=== PATIENT | male | born 1945 | race Caucasian/White ===

== ENCOUNTER 2024-08-01 10:48 | Outpatient (AMB) | payer MEDICARE, SELFPAY ==
[2024-08-01 11:00] VITALS: BP 162/84; PULSE 78; RESP 18; TEMP 36.1; O2SAT 97; BMI 34.5
--- NOTE | 2024-08-01 11:00 | PD.GSCLVISIT ---
Vital Signs - [facility] 08/01/24 11:00 Height 1.75 m Height Method Stated Weight 106.141 kg Weight Measurement Method Standing Scale BMI 34.5 BP 162/84 H Blood Pressure Source Automatic Cuff Blood Pressure Location Right Upper Arm Position Sitting Respiration 18 Pulse 78 Pulse Source Monitor Temp 96.9 F Temp Source Temporal Artery Scan Pulse Oximetry (%) 97 Oxygen Delivery Method Room Air Med/Allergies Allergies & Medications Allergies morphine Allergy (Intermediate, Verified 08/01/24 11:01) RASH Medication Reconciliation atorvastatin 10 mg tablet (Lipitor) 10 mg PO DAILY ##0 01/15/10 [History Confirmed 08/01/24] venlafaxine 75 mg capsule,extended release 24 hr 75 mg PO BID Depression ##0 07/22/14 [History Confirmed 08/01/24] baclofen 10 mg tablet 10 mg PO BID 04/11/21 [History Confirmed 08/01/24] allopurinol 100 mg tablet 100 mg PO DAILY 07/17/22 [History Confirmed 08/01/24] aspirin 81 mg chewable tablet 81 mg PO QDAY 07/17/22 [History Confirmed 08/01/24] cholecalciferol (vitamin D3) 125 mcg (5,000 unit) tablet (Vitamin D3) 125 mcg PO 2 X WEEKLY 07/17/22 [History Confirmed 08/01/24] gabapentin 300 mg capsule 300 mg PO TID 07/17/22 [History Confirmed 08/01/24] ibuprofen 800 mg tablet 800 mg PO TID 07/17/22 [History Confirmed 08/01/24] amlodipine 5 mg-benazepril 10 mg capsule 1 cap PO BID 04/28/23 [History Confirmed 08/01/24] levothyroxine 125 mcg tablet 125 mcg PO QDAY 04/28/23 [History Confirmed 08/01/24] primidone 250 mg tablet 250 mg PO BID 04/28/23 [History Confirmed 08/01/24] aspirin 81 mg chewable tablet 81 mg PO QDAY 06/09/23 [History Confirmed 08/01/24] hydrocodone 10 mg-acetaminophen 325 mg tablet 1 tab PO 4XD PRN Pain 06/09/23 [History Confirmed 08/01/24] temazepam 30 mg capsule 30 mg PO DAILY 06/09/23 [History Confirmed 08/01/24] hydrocortisone 1 % topical cream with perineal applicator 1 applic [place] QDAY #28.4 grams 02/03/24 [Rx Confirmed 08/01/24] MA Intake Visit Data Collection New Patient or Established: Established Patient (seen at [facility] within 3 years) Seen by Clinical Staff ONLY (RN/DEB): No Reason for Visit:: ANAL LEAKAGE X 2 MONTHS Pain Present Currently: No PCP or OBGYN visit in last 3 months: Yes Smoking Status Smoking Status: Never smoker Immunization / Flu Flu Vaccine in the Last 12 Months: Yes Flu Vaccine Exclusion Criteria: Already Received Past Medical History Past Medical History NEUROLOGIC: Negative Neurological Disorders, Seizures or Migraine CARDIAC: Positive Cardiac Disorders, Hypercholesterolemia and Hypertension; Negative Congestive Heart Failure, Edema or Varicose Veins RESPIRATORY: Positive Chronic Obstructive Pulmonary Disease (COPD) and Bronchitis GASTROINTESTINAL: Positive Gastrointestinal Disorders, Gall Bladder Disease, Hemorrhoids and Obesity; Negative Hepatitis GENITOURINARY: Positive Genitourinary Disorders, Kidney Stones and Benign Prostatic Hyperplasia; Negative Renal Disease MUSCULOSKELETAL: Positive Arthritis and Carpal Tunnel Syndrome (bilateral) ENT: Positive Cataracts (right) ENDOCRINE: Positive Endocrine Disorders and Hypothyroidism; Negative Diabetes Mellitus Type 1 or Diabetes Mellitus Type 2 HEMATOLOGIC: Negative Blood Disorders PSYCHO/SOCIAL: Positive Depression and Anxiety OTHER HISTORY: Positive Hospitalization (surgeries), Falls, Chicken Pox and Measles; Negative Autoimmune Disease, Shingles, Blood Transfusions, Blood Transfusion Reaction, Anesthesia Reactions, MRSA, Mumps or Cancer Family History FAMILY HISTORY: Positive Family Respiratory Disorders, Family Cardiac Disorders and Family Surgery; Negative Family Psychiatric Problems, Family Gastrointestinal Problems, Family Cancer or Family Anesthesia Reaction Surgical History SURGICAL: Positive Cardiac Surgery, Coronary Stent, Angiogram, Ear Surgery, Abdominal Surgery and Transurethral Resection; Negative Pacemaker Social History SMOKING STATUS: Smoking status: Never smoker ALCOHOL: Alcohol Intake: Former HOUSING: Housing: House HPI HPI Narrative 77M with history of perianal ulcer s/p biopsy x2 negative for malignancy, here for follow up. Pt reports he is having his baseline loose BMs but as of the last few weeks has noticed that sometimes he has to wipe even when he does not have a BM. He has also noticed a whitish discharge sometimes upon wiping. He denies any pain, bleeding or itching and is not using any remedies. He denies any fever or sick contacts ROS Review of Systems Systems Reviewed: All systems reviewed, normal except as documented Objective/Exam General General Appearance: alert, cooperative and well groomed Resp Respiratory exam: Absent respiratory distress Rectal Rectal exam: Present other (previous anterior perianal ulcer well-healed; there are no hemorrhoids, no signs of external fistula) Assessment & Plan Diagnosis / Problem List (1) Perianal ulcer: Status: Acute Assessment & Plan: 77M with history of perianal ulcer s/p biopsy x2 negative for malignancy, here for follow up to discuss white perianal discharge. On exam I did not find any abnormalities; I encouraged pt to initiate fiber in order to minimize loose BMs and incontinence Advanced Care Planning Advance care planning discussed with:: other Office Procedures GNS Level of Care Nursing/Assessment Patient Status: Established Patient Nursing Assessment/Reassesment: Medication Reconciliation, Update PMH in EMR and Vital Signs Coordination of Care: Complex Care and Chronic Disease 1-5, Education Complex Pt/Fam, 1 Ins Authorization and Staff clarify orders Established Patient Charge Established Patient Point Assignment: 100 Established Patient Point Charge: EP Level 3 (80-115) Patient Portal Questionaires Social History Living Situation History Housing: House Tobacco History Smoking Status: Never smoker Alcohol History Alcohol Intake: Former Review of Systems Report any current symptoms Only answer those that you have currently: Past Medical History Past Medical History Have you ever been diagnosed with any of the following: Neurological Problems Seizures: No Migraine: No Cardiology Problems Hypercholesterolemia: Yes Congestive Heart Failure: No Edema: No Hypertension: Yes Varicose Veins: No Respiratory Problems Chronic Obstructive Pulmonary Disease (COPD): Yes Bronchitis: Yes Stomache/Intestinal Problems Hepatitis: No Gall Bladder Disease: Yes Hemorrhoids: Yes Obesity: Yes Genital/Urinary Problems Renal Disease: No Kidney Stones: Yes Benign Prostatic Hyperplasia: Yes Musculoskeletal Problems Arthritis: Yes Carpal Tunnel Syndrome: Yes (bilateral) Head,Eye,Nose,Throat Problems Cataracts: Yes (right) Endocrine Problems Diabetes Mellitus Type 1: No Diabetes Mellitus Type 2: No Hypothyroidism: Yes Psychologic Problems Depression: Yes Anxiety: Yes Other Problems Hospitalization: Yes (surgeries) Autoimmune Disease: No Shingles: No Falls: Yes Blood Transfusions: No Blood Transfusion Reaction: No Anesthesia Reactions: No MRSA: No Chicken Pox: Yes Measles: Yes Mumps: No Cancer: No Surgical History Pacemaker: No
== END 2024-08-01 11:58 | disposition home or self-care (01) ==
LOC: HODSRG 10:48
PROVIDERS: PCP Family Medicine; Referring Provider Family Medicine; Supervising Provider Surgery; Visit Provider Surgery
DX: K62.89 Other specified diseases of anus and rectum (principal)
CPT/HCPCS: 99213; G0463

== ENCOUNTER → 2024-08-16 | Outpatient (CLI) | payer MEDICARE, SELFPAY ==
[2024-08-16 08:18] LABS: Collection Type, Urine Clean Catch
[2024-08-16 09:00] LABS: Basophils % (Auto) 0 % (0-2.5); Eosinophils # (Auto) 0.1 Thou/mm3 (0.0-0.5); Eosinophils % (Auto) 1 % (0-10); Hematocrit 41.2 % (41.0-53.0); Hemoglobin 13.7 g/dL (13.5-16.0); Immature Granulocytes % (Auto) 0 % (0-0); Immature Granulocytes Auto 0.02 Thou/mm3 (0.00-0.00); Lymphocytes % (Auto) 22 % (10-50); Mean Corpuscular HGB Conc 33.3 g/dl (31.0-37.0); Mean Corpuscular Hemoglobin 31.1 pg (25.0-35.0); Mean Corpuscular Volume 93 fL (80-100); Monocytes # (Auto) 0.8 Thou/mm3 (0.0-0.8); Monocytes % (Auto) 8 % (0-12); Neutrophils # (Auto) 6.3 Thou/mm3 (1.8-7.7); Neutrophils % (Auto) 69 % (37-80); Nucleated Red Blood Cell % 0 /100 WBC (0); Platelet Count 214 Thou/mm3 (140-440); RDW Standard Deviation 44.2 fL (35.1-43.9); Red Blood Count 4.41 Miln/mm3 (4.50-5.90); White Blood Count 9.2 Thou/mm3 (3.8-10.6)
[2024-08-16 09:07] LABS: Bilirubin,Urine Negative (Negative); Blood,Urine Negative (Negative); Clarity,Urine Clear (Clear/Hazy); Color,Urine Lt-Yellow (Lt Yel-Yel); Glucose, Urine Negative (Negative); Ketones,Urine Negative (Negative); Leukocyte Esterase,Urine Negative (Negative); Nitrite,Urine Negative (Negative); Protein,Urine 1+ (Neg - Trace); RBC,Urine 2 /hpf (0-3); Specific Gravity,Urine 1.027 (1.001-1.035); Squamous Epithelial Cell,Urine < 1 /hpf (0-5); Urobilinogen,Urine Negative mg/dL (0.0-1.0); WBC,Urine 1 /hpf (0-5)
[2024-08-16 09:12] LABS: Glucose Estimated Average 120 mg/dL (80-131); Hemoglobin A1C 5.8 % Hgb (4.8-6.0)
[2024-08-16 09:47] LABS: Alanine Aminotransferase 21 U/L (10-49); Albumin, Serum 4.7 gm/dL (3.4-4.8); Albumin/Globulin Ratio 2.1 (1.2-2.2); Alkaline Phosphatase 83 U/L (46-116); Anion Gap 8 (7-16); Aspartate Amino Transferase 15 U/L (0-34); BUN/Creatinine Ratio 20 Ratio (12-20); Bilirubin,Total 0.2 mg/dL (0.3-1.2); Blood Urea Nitrogen 18 mg/dL (9-23); Calcium 9.2 mg/dL (8.3-10.6); Calcium (Corrected) 9.2 mg/dL (8.5-10.1); Carbon Dioxide 30.7 mMol/L (20.0-31.0); Cardiac Risk Estimate 3.5 RATIO (4.0-6.7); Chloride 101 mMol/L (98-107); Cholesterol 117 mg/dL (132-200); Creatinine (Component) 0.9 mg/dL (0.6-1.3); Globulin 2.2 gm/dL (2.3-3.5); Glucose 111 mg/dL (74-106); HDL Cholesterol 33 mg/dL (40-60); LDL Cholesterol,Calculated 60 mg/dL (0-130); Osmolality,Calculated 282 (275-295); Potassium 4.6 mMol/L (3.4-5.1); Sodium 140 mMol/L (136-145); Total Protein 6.9 gm/dL (5.7-8.2); Triglycerides 122 mg/dL (30-150); eGFR > 60 See Note
[2024-08-16 10:02] LABS: Creatinine MALB Rnd Ur 151 mg/dL (30-125); Microalbumin Creat Ratio 56 mg/gCrea (<30); Microalbumin, Random Urine 85 mg/L (0-300)
== END | disposition home or self-care (01) ==
LOC: COPL 06:40
PROVIDERS: PCP Family Medicine; Referring Provider Family Medicine; Visit Provider Family Medicine
DX: Z00.00 Encounter for general adult medical examination without abnormal findings (principal); E11.40 Type 2 diabetes mellitus with diabetic neuropathy, unspecified; E78.2 Mixed hyperlipidemia; I10 Essential (primary) hypertension; E03.9 Hypothyroidism, unspecified
CPT/HCPCS: 36415; 80053; 80061; 81001; 82043; 82570; 83036; 84443; 85025

== ENCOUNTER 2024-09-14 18:40 | Emergency (ER) | payer MEDICARE, SELFPAY ==
[2024-09-14 18:43] VITALS: BP 183/92; PULSE 74; RESP 20; TEMP 36.9; O2SAT 95
[2024-09-14 18:44] VITALS: PULSE 77; RESP 20; O2SAT 98; BMI 34.9
--- NOTE | 2024-09-14 19:14 | PD.EDWEAK ---
ED Weakness RME/HPI General Chief complaint: Weakness Stated complaint: WEAKNESS Time Seen by Provider: 09/14/24 19:14 Arrival date/time: 09/14/24 18:40 RME / HPI RME / HPI Narrative: This section includes all my notes and documentations, including HPI, PE, and ED course. Paddy Valadez MD HPI: 78yo male with a history of HTN, HLD, multiple back surgeries BIBA from home presents to the ED for vague complaints. Patient states he went to see a supervisor stone today and was told his blood pressure was high, 180 systolically. He reports having a headache and my face feeling tight . He also notes having generalized abdominal pain. He denies any vomiting, fever, chills or any other associated symptoms. He took ibuprofen 800mg at 1600. PSH includes cholecystectomy and appendectomy. No other complaints reported. ROS: All negative except as documented in HPI. Physical Exam: General: Alert and oriented. No acute distress when remaining still. Eyes: Conjunctivae and lids clear. PERRL. EOMI. ENT: No nasal congestion. Neck: Supple. Heart: RRR. Lungs: No respiratory distress. Good air movement. No rhonchi, wheezing, rales. Abdomen: Soft. Diffusely tender. Legs: No clubbing, cyanosis, edema. Skin: Warm and dry. Neuro: Alert and oriented X 3. Cranial nerves II to XII grossly normal. No peripheral motor deficits. I reviewed all diagnostic test results. My interpretation of the EKG is sinus rhythm with no acute ST?T changes. My review of the head CT report is no acute findings. My review of the chest/abdomen/pelvis CT report is no acute findings. Blood tests and urine tests unremarkable. At this point, diagnoses include tension headache and hypertension. Treatment here included IV fluid and oral clonidine 0.3 mg and two Tylenol #3. Significant improvement noted. Recommended more outpatient care. Based on my best medical judgment, made decision no further evaluation or treatment indicated at this time. Patient understands and agrees to the discharge instructions customized and printed, see below. Discharge Instructions from Dr. Valadez printed for you: 1. After extensive evaluation, fortunately there is no life-threatening condition. Such as stroke or brain tumor or heart attack. 2. Tylenol with Codeine for your severe headaches as needed. 3. Clonidine 0.1 mg every morning and every night to help lower your BP. You will live longer with lower BP. 4. See a private doctor on 09/16/2024 for recheck and further care. 5. Seek immediate medical care with worsening or with any concerns. Paddy Valadez MD Related Data Home Medications ?Medication ?Instructions ?Recorded ?Confirmed atorvastatin 10 mg tablet (Lipitor) 10 mg PO DAILY ##0 01/15/10 08/01/24 venlafaxine 75 mg capsule,extended 75 mg PO BID Depression ##0 07/22/14 08/01/24 release 24 hr baclofen 10 mg tablet 10 mg PO BID 04/11/21 08/01/24 allopurinol 100 mg tablet 100 mg PO DAILY 07/17/22 08/01/24 aspirin 81 mg chewable tablet 81 mg PO QDAY 07/17/22 08/01/24 cholecalciferol (vitamin D3) 125 125 mcg PO 2 X WEEKLY 07/17/22 08/01/24 mcg (5,000 unit) tablet (Vitamin D3) gabapentin 300 mg capsule 300 mg PO TID 07/17/22 08/01/24 ibuprofen 800 mg tablet 800 mg PO TID 07/17/22 08/01/24 amlodipine 5 mg-benazepril 10 mg 1 cap PO BID 04/28/23 08/01/24 capsule levothyroxine 125 mcg tablet 125 mcg PO QDAY 04/28/23 08/01/24 primidone 250 mg tablet 250 mg PO BID 04/28/23 08/01/24 aspirin 81 mg chewable tablet 81 mg PO QDAY 06/09/23 08/01/24 hydrocodone 10 mg-acetaminophen 1 tab PO 4XD PRN Pain 06/09/23 08/01/24 325 mg tablet temazepam 30 mg capsule 30 mg PO DAILY 06/09/23 08/01/24 Previous Rx's ?Medication ?Instructions ?Recorded hydrocortisone 1 % topical cream 1 applic [place] QDAY #28.4 grams 02/03/24 with perineal applicator acetaminophen 300 mg-codeine 30 mg 2 tab PO TID PRN pain #20 tabs 09/14/24 tablet clonidine HCl 0.1 mg tablet 0.1 mg PO BID #60 tabs 09/14/24 Allergies Allergy/AdvReac Type Severity Reaction Status Date / Time morphine Allergy Intermediate RASH Verified 08/01/24 11:01 Review of Systems Review of Systems Systems Reviewed: All systems reviewed, normal except as documented ED Exam Narrative Physical exam: As noted in HPI. Course Quality Measures none Orders Category Date Time Status Bedside COVID-19 Antigen Test NOW Care 09/14/24 19:46 Active Bedside Influenza A&B Antigen Test NOW Care 09/14/24 19:46 Completed EKG (ED ONLY) *Do not use* NOW Care 09/14/24 19:47 Completed Saline [Insert IV] NOW Care 09/14/24 19:[address] chest abdomen pelvis wo Stat Exams 09/14/24 19:[address] head/brain wo con Stat Exams 09/14/24 19:47 Completed EKG (ED Only) Stat Exams 09/14/24 19:47 Draft CBC Stat Lab 09/14/24 20:14 Completed CMP [Comprehensive Metabolic Panel] Stat Lab 09/14/24 20:14 Completed Magnesium Stat Lab 09/14/24 20:14 Completed TSH [Thyroid Stimulating Hormone] Stat Lab 09/14/24 20:14 Completed Troponin I Stat Lab 09/14/24 20:14 Completed UA, C/S IF [Urinalysis, C/S if Indicated] Stat Lab 09/14/24 19:55 Completed ACETAMINOPHEN w/COD 300-30 [Tylenol w/Cod #3] Med 09/14/24 19:45 Discontinued 2 tab PO X1 ONE Sodium Chloride 0.9% 1000 ml [Ns] 1,000 ml Med 09/14/24 19:46 Discontinued IV 999 mls/hr cloNIDine HCL [Catapres] Med 09/14/24 19:45 Discontinued 0.3 mg PO X1 ONE Vital Signs Vital signs: Vital Signs Temperature 98.4 F 09/14/24 18:43 Pulse Rate 74 09/14/24 18:43 Respiratory Rate 20 09/14/24 18:43 Blood Pressure 183/92 H 09/14/24 18:43 Pulse Oximetry (%) 95 09/14/24 18:43 Oxygen Delivery Method Room Air 09/14/24 18:43 Weakness MDM Narrative MDM Narrative:: Scribe Attestation: 09/14/24 - Sandy, Nory Alvarado am scribing for and in the presence of Dr. Valadez. Patient data External records reviewed:: [facility] previous records (Per chart review, patient was seen here on 02/20/24 for a foot contusion.) Clinical information provided by:: patient Social determinants that could affect healthcare access:: none Patient has the following chronic illnesses:: HTN, HLD, hypothyroidism, multiple back surgeries How is presenting disease/condition affected by chronic disease/condition?: uneffected by Evaluation data The following diagnostics were reviewed and interpreted by me:: lab results and EKG tracing(s) (My interpretation of the EKG: NSR (66 bpm) with no ST-T changes. Paddy Valadez MD) Lab and/or radiology exams considered but not ordered:: none Interpretation Summary: Tension headache and hypertension Medications / Prescriptions Medications or Prescriptions considered but not ordered:: none Medication administrations:: Medication Administration History Discontinued Medications Acetaminophen/Codeine Phosphate (Acetaminophen W/Cod 300-30 Tablet) 2 tab PO X1 ONE Stop: 09/14/24 19:46 Last Admin: 09/14/24 20:04 Dose: 2 tab Documented By: JEWEL Clonidine (Clonidine Hcl 0.1 Mg Tablet) 0.3 mg PO X1 ONE Stop: 09/14/24 19:46 Last Admin: 09/14/24 20:04 Dose: 0.3 mg Documented By: JEWEL Sodium Chloride (Ns) 1,000 mls @ 999 mls/hr IV .Q1H1M ONE Stop: 09/14/24 20:46 Last Infusion: 09/14/24 22:50 Dose: Infused Documented By: Admin: 09/14/24 20:04 Dose: 999 mls/hr Documented By: JEWEL NS, Clonidine, Tylenol with Codeine Consultations Consultation(s) initiated? (list below): No Diagnosis Weakness Differential Diagnosis: acute myocardial infarction, anemia, hypoglycemia, hypothyroidism, sepsis and dehydration Most likely diagnosis given after review of the tests above:: Tension headache, hypertension Admission Indicated Admission indicated?: not indicated Explain why admission is indicated or not indicated:: No criteria for admission. Admission Request Was there a request for admission?: No Disposition Plan Disposition Plan: Discharge Discharge Attestation Discharge Attestation: The patient and all family members were given an opportunity to ask questions and understood the discharge instructions. Discharge instructions specifically effects, indications for sooner follow up or return to the emergency department, and the expected course of current diagnosis. Patient condition: Stable Discharge Plan Plan Patient Disposition: HOME (Self Care) Prescriptions/Referrals Prescriptions/Med Rec: New clonidine HCl 0.1 mg tablet 0.1 mg PO BID Qty: 60 0RF acetaminophen-codeine 300-30 mg tablet 2 tab PO TID MDD 6 PRN (Reason: pain) Qty: 20 0RF No Action hydrocortisone 1 % cream with perineal applicator 1 applic [place] QDAY Qty: 28.4 0RF atorvastatin [Lipitor] 10 MG tablet 10 mg PO DAILY Qty: 0 venlafaxine 75 mg Capsule,Extended Release 24hr 75 mg PO BID Qty: 0 baclofen 10 mg Tablet 10 mg PO BID primidone 250 mg Tablet 250 mg PO BID amlodipine-benazepril 5-10 mg Capsule 1 cap PO BID levothyroxine 125 mcg Tablet 125 mcg PO QDAY hydrocodone-acetaminophen 10-325 mg Tablet 1 tab PO 4XD PRN (Reason: Pain) temazepam 30 mg capsule 30 mg PO DAILY Patient Comments: TAKE 1 CAPSULE BY MOUTH AT NIGHT FOR CHRONIC INSOMNIA aspirin 81 mg Tablet,Chewable 81 mg PO QDAY ibuprofen 800 mg tablet 800 mg PO TID Patient Comments: TAKE 1 TABLET BY MOUTH TWICE DAILY allopurinol 100 mg tablet 100 mg PO DAILY Patient Comments: TAKE 1 TABLET BY MOUTH ONCE DAILY FOR ELEVATED URIC ACID LEVELS gabapentin 300 mg capsule 300 mg PO TID Patient Comments: TAKE 1 CAPSULE BY MOUTH THREE TIMES DAILY aspirin 81 mg Tablet,Chewable 81 mg PO QDAY cholecalciferol (vitamin D3) [Vitamin D3] 125 mcg (5,000 unit) Tablet 125 mcg PO 2 X WEEKLY Referrals: Earl Tadeo MD [Primary Care Provider] - In 1 week Problem List Clinical Impression: Headache, Hypertension Patient/Caregiver Discharge Instructions Discharge Activity: activity as tolerated Education Materials: ED Headache, Tension, ED Hypertension, Established Additional Instructions: Discharge Instructions from Dr. Valadez printed for you: 1. After extensive evaluation, fortunately there is no life-threatening condition. Such as stroke or brain tumor or heart attack. 2. Tylenol with Codeine for your severe headaches as needed. 3. Clonidine 0.1 mg every morning and every night to help lower your BP. You will live longer with lower BP. 4. See a private doctor on 09/16/2024 for recheck and further care. 5. Seek immediate medical care with worsening or with any concerns. Print Language: [place] Stand Alone Forms: [employer] Award Info., Patient Portal Info Letter
--- NOTE | 2024-09-14 19:47 | EKG_ITS ---
[facility] Test Date: 2024-09-14 Pat Name: LILIA TERRY Department: Room: - Gender: Male [employer] Operator: : 1945 Requested By: Paddy Mg Order Number: [id number] Reading MD: Paddy Mg Measurements Intervals [place] Rate: 66 P: 62 HI: 206 QRS: 22 QRSD: 89 T: 62 QT: 376 QTc: 396 Interpretive Statements SINUS RHYTHM Compared to ECG 04/28/2023 10:46:04 Myocardial infarct finding no longer present /store/S0/[id number].pdf
--- NOTE | 2024-09-14 19:47 | XR_ITS ---
Examination: CT chest, without intravenous contrast. CT abdomen, without intravenous contrast. CT pelvis, without intravenous contrast. 2-D sagittal and coronal reconstructions. 3-D reconstructions. Date and time of exam:September 14, 2024 0840 hrs. Indications: Chest pain abdominal pain several days CTDI vol (mgy) 12.0 DLP (MGycm)7 Technique: Multiple CT images, 3.0 mm slice thickness, obtained chest, abdomen, pelvis, with the high-resolution 64 slice scanner.. Sagittal and coronal 2-D reconstructions are obtained. 3-D reconstructions Low dose protocols were performed. One or more of the following dose reduction techniques were used; automated exposure control, adjustment of the mA and/or KV according to patient size, use of iterative reconstruction technique. Findings: Thoracic aortic calcification no aneurysmal dilatation Pulmonary artery segments are not enlarged No paratracheal tracheobronchial or bronchopulmonary adenopathy Atelectasis in the upper lung zones COPD with areas of airspace destruction in the upper lung zones No lobar pneumonia No liver or splenic lesion Absent gallbladder No pancreatic or adrenal mass Perinephric stranding No renal or ureteral calculi Heavy abdominal aortic calcification no aneurysmal dilatation No pericecal inflammatory change No bowel obstruction No bladder mass Lumbar fusion L2 4 through S1 with satisfactory alignment Prominent osteopenia Impression: COPD No pneumonia or pulmonary edema Perinephric stranding, consider urinary tract infection No renal or ureteral calculi, no arthrosis No CT findings of appendicitis bowel obstruction or diverticulitis
--- NOTE | 2024-09-14 19:47 | XR_ITS ---
Examination: CT brain head without contrast. 2-D sagittal coronal reconstructions Date and time of exam:September 14, 20247 hrs. Indications: Onset severe headache today CTDI: vol (mGy):55.8 DLP: (mGycm):1118 Technique: Multiple CT axial sections of the brain have been obtained, 5 mm slice thickness. Contrast has not been administered. 2-D sagittal, coronal reconstructions have been obtained Low dose protocols were performed. One or more of the following dose reduction techniques were used; automated exposure control, adjustment of the mA and/or KV according to patient size, use of iterative reconstruction technique. Findings: No significant ventricular enlargement. Intra-axial or extra-axial hemorrhage density is not seen. No mass effect or midline shift Basal cisterns are not remarkable. Fourth ventricle is midline. Cranial vault intact. Impression: Negative for acute hemorrhage, mass effect or midline shift Bilateral chronic mastoiditis Left otitis externa
[2024-09-14 20:04] VITALS: BP 189/93; PULSE 72
[2024-09-14] MEDS: cloNIDine HCL 0.1 MG TABLET 0.3 MG PO (20:04)
[2024-09-14] MEDS: ACETAMINOPHEN w/COD 300-30 TABLET 2 TAB PO (20:04)
[2024-09-14] MEDS: SODIUM CHLORIDE 0.9% 1000 ML 1,000 ML 999 ML IV (20:04)
[2024-09-14 20:06] LABS: Collection Type, Urine Clean Catch
[2024-09-14 20:16] LABS: Bilirubin,Urine Negative (Negative); Blood,Urine Negative (Negative); Clarity,Urine Clear (Clear/Hazy); Color,Urine Lt-Yellow (Lt Yel-Yel); Culture Indicated,Urine Not Indicated; Glucose, Urine Negative (Negative); Ketones,Urine Negative (Negative); Leukocyte Esterase,Urine Negative (Negative); Nitrite,Urine Negative (Negative); PH,Urine 6.5 (5.0-7.0); Protein,Urine Trace (Neg - Trace); RBC,Urine 2 /hpf (0-3); Specific Gravity,Urine 1.027 (1.001-1.035); Squamous Epithelial Cell,Urine 1 /hpf (0-5); Urobilinogen,Urine Negative mg/dL (0.0-1.0); WBC,Urine 1 /hpf (0-5)
[2024-09-14 20:42] LABS: Basophils % (Auto) 0 % (0-2.5); Eosinophils # (Auto) 0.1 Thou/mm3 (0.0-0.5); Eosinophils % (Auto) 1 % (0-10); Hematocrit 35.8 % (41.0-53.0); Hemoglobin 12.2 g/dL (13.5-16.0); Immature Granulocytes % (Auto) 0 % (0-0); Immature Granulocytes Auto 0.02 Thou/mm3 (0.00-0.00); Lymphocytes # (Auto) 2.3 Thou/mm3 (1.0-4.8); Lymphocytes % (Auto) 26 % (10-50); Mean Corpuscular HGB Conc 34.1 g/dl (31.0-37.0); Mean Corpuscular Hemoglobin 31.3 pg (25.0-35.0); Mean Corpuscular Volume 92 fL (80-100); Monocytes # (Auto) 0.9 Thou/mm3 (0.0-0.8); Monocytes % (Auto) 10 % (0-12); Neutrophils # (Auto) 5.6 Thou/mm3 (1.8-7.7); Neutrophils % (Auto) 62 % (37-80); Nucleated Red Blood Cell % 0 /100 WBC (0); Platelet Count 183 Thou/mm3 (140-440); RDW Standard Deviation 42.5 fL (35.1-43.9)
[2024-09-14 21:05] LABS: Alanine Aminotransferase 17 U/L (10-49); Albumin, Serum 4.2 gm/dL (3.4-4.8); Albumin/Globulin Ratio 1.8 (1.2-2.2); Alkaline Phosphatase 78 U/L (46-116); Anion Gap 0 (7-16); Aspartate Amino Transferase 15 U/L (0-34); BUN/Creatinine Ratio 21 Ratio (12-20); Bilirubin,Total 0.2 mg/dL (0.3-1.2); Blood Urea Nitrogen 17 mg/dL (9-23); Calcium 8.9 mg/dL (8.3-10.6); Calcium (Corrected) 8.9 mg/dL (8.5-10.1); Carbon Dioxide 28.7 mMol/L (20.0-31.0); Chloride 108 mMol/L (98-107); Creatinine (Component) 0.8 mg/dL (0.6-1.3); Globulin 2.3 gm/dL (2.3-3.5); Glucose 99 mg/dL (74-106); Osmolality,Calculated 275 (275-295); Potassium 4.8 mMol/L (3.4-5.1); Sodium 137 mMol/L (136-145); Thyroid Stimulating Hormone 2.06 uIU/mL (0.55-4.78); Total Protein 6.5 gm/dL (5.7-8.2); Troponin I < 0.020 ng/mL (0.0-0.045); eGFR > 60 See Note
[2024-09-14 21:30] VITALS: BP 149/78; PULSE 68; RESP 14; O2SAT 94
[2024-09-14 22:25] VITALS: BP 146/79; PULSE 61; RESP 14; TEMP 36.4; O2SAT 95
[2024-09-14 23:15] VITALS: BP 123/66; PULSE 60; RESP 12; TEMP 36.7; O2SAT 98
== END 2024-09-14 23:15 | disposition home or self-care (01) ==
PROVIDERS: Emergency Provider Emergency Medicine; PCP Family Medicine
DX: R51.9 Headache, unspecified (principal); I10 Essential (primary) hypertension; E78.5 Hyperlipidemia, unspecified
CPT/HCPCS: 36415; 70450; 71250; 74176; 80053; 81001; 83735; 84443; 84484; 85025; 87400; 87811; 93005; 96360; 96361; 99284; J7030; A9270

== ENCOUNTER 2024-12-28 18:01 | Emergency (ER) | payer MEDICARE, SELFPAY ==
[2024-12-28 18:29] VITALS: BP 177/92; PULSE 68; RESP 20; TEMP 36.7; O2SAT 95; BMI 34.0
--- NOTE | 2024-12-28 18:47 | XR_ITS ---
Examination: CT cervical spine without contrast 2-D sagittal reconstructions 2-D coronal reconstructions 3-D reconstructions. Exam date and time:December 28, 20242005 hours INDICATIONS: Patient fell 2 years ago with injury to the neck, neck pain CTDI:vol (mGy) 10.4 DLP: (mGycm) 206 Technique: Multiple 2 mm axial sections of the cervical spine have been obtained. The coronal and sagittal reconstructions have been obtained. 3-D reconstructions have been obtained. Low dose protocols were performed. One or more of the following dose reduction techniques were used; automated exposure control, adjustment of the mA and/or KV according to patient size, use of iterative reconstruction technique. Findings: Axial sections demonstrate intact base of the skull. C1 exhibit satisfactory relationship to the odontoid. No acute cervical vertebral body fracture seen. Alignment posterior spinous processes satisfactory. Extensive cervical fusion C2-T1 Impression: No acute cervical fracture.
--- NOTE | 2024-12-28 18:47 | XR_ITS ---
Examination: CT chest, without intravenous contrast. CT abdomen, without intravenous contrast. CT pelvis, without intravenous contrast. 2-D sagittal and coronal reconstructions. 3-D reconstructions. Date and time of exam:December 28, 20242010 hours INDICATIONS: Patient fell 2 days ago with injury of the chest and abdomen, chest pain right flank pain CTDI vol (mgy) 11.7 DLP (MGycm)925 Technique: Multiple CT images, 3.0 mm slice thickness, obtained chest, abdomen, pelvis, with the high-resolution 64 slice scanner.. Sagittal and coronal 2-D reconstructions are obtained. 3-D reconstructions Low dose protocols were performed. One or more of the following dose reduction techniques were used; automated exposure control, adjustment of the mA and/or KV according to patient size, use of iterative reconstruction technique. Findings: Thoracic aorta pulmonary arteries appear intact on this noncontrast study No hemopericardium COPD with multiple areas of air space destruction, no pneumothorax pulmonary contusion or hemothorax The manubrium sternum thoracic and lumbar vertebral bodies appear intact with fusions L4-L5 Ribs appear intact No liver splenic or renal laceration 1 mm calculus nonobstructing left kidney Heavy calcification abdominal aorta, aorta is intact with no free bled in the abdomen Negative for pneumoperitoneum Urinary bladder intact Sacral segments iliac bones acetabular regions intact Old healed left hip fracture, no acute hip fractures IMPRESSION: Thoracic aorta pulmonary arteries intact No hemopericardium COPD No pneumothorax pulmonary contusion or hemothorax No abdominal parenchymal laceration Abdominal aorta intact No free blood in the abdomen or pelvis
--- NOTE | 2024-12-28 18:47 | XR_ITS ---
Examination: CT brain head without contrast. 2-D sagittal coronal reconstructions Date and time of exam:December 28, 2024 2008 hours Comparison September 14, 2024 INDICATION: Patient fell 2 days ago with injury to the head, head pain CTDI: vol (mGy):55.6 DLP: (mGycm):1119 Technique: Multiple CT axial sections of the brain have been obtained, 5 mm slice thickness. Contrast has not been administered. 2-D sagittal, coronal reconstructions have been obtained Low dose protocols were performed. One or more of the following dose reduction techniques were used; automated exposure control, adjustment of the mA and/or KV according to patient size, use of iterative reconstruction technique. Findings: No significant ventricular enlargement. 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 No mass effect or midline shift Basal cisterns are not remarkable. Fourth ventricle is midline. Cranial vault intact. Impression: No interval acute hemorrhage, mass effect or midline shift
--- NOTE | 2024-12-28 18:59 | PD.EDMALE ---
ED Male Genitalurinary RME/HPI General Chief complaint: Urogenital-Male Stated complaint: RIGHT FLANK PAIN X YESTERDAY WITH PAINFUL URINE Time Seen by Provider: 12/28/24 18:21 Arrival date/time: 12/28/24 18:01 79M with history of TURP procedure, hypothyroidism, HTN, and several back surgeries presents to ED with 2 days of R flank pain and dysuria. Separately, patient fell while going to the bathroom 2 days ago. Fall was unwitnessed, but heard him fall and when she arrived, patient was awake and got up himself. No known injury except patient scraped his L knee. Patient states the back/flank pain is not from the fall because he states this pain is different than his normal back pain. Limitations: no limitations Related Data Home Medications ?Medication ?Instructions ?Recorded ?Confirmed atorvastatin 10 mg tablet (Lipitor) 10 mg PO DAILY ##0 01/15/10 08/01/24 venlafaxine 75 mg capsule,extended 75 mg PO BID Depression ##0 07/22/14 08/01/24 release 24 hr baclofen 10 mg tablet 10 mg PO BID 04/11/21 08/01/24 allopurinol 100 mg tablet 100 mg PO DAILY 07/17/22 08/01/24 aspirin 81 mg chewable tablet 81 mg PO QDAY 07/17/22 08/01/24 cholecalciferol (vitamin D3) 125 125 mcg PO 2 X WEEKLY 07/17/22 08/01/24 mcg (5,000 unit) tablet (Vitamin D3) gabapentin 300 mg capsule 300 mg PO TID 07/17/22 08/01/24 ibuprofen 800 mg tablet 800 mg PO TID 07/17/22 08/01/24 amlodipine 5 mg-benazepril 10 mg 1 cap PO BID 04/28/23 08/01/24 capsule levothyroxine 125 mcg tablet 125 mcg PO QDAY 04/28/23 08/01/24 primidone 250 mg tablet 250 mg PO BID 04/28/23 08/01/24 aspirin 81 mg chewable tablet 81 mg PO QDAY 06/09/23 08/01/24 hydrocodone 10 mg-acetaminophen 1 tab PO 4XD PRN Pain 06/09/23 08/01/24 325 mg tablet temazepam 30 mg capsule 30 mg PO DAILY 06/09/23 08/01/24 Previous Rx's ?Medication ?Instructions ?Recorded hydrocortisone 1 % topical cream 1 applic [place] QDAY #28.4 grams 02/03/24 with perineal applicator acetaminophen 300 mg-codeine 30 mg 2 tab PO TID PRN pain #20 tabs 09/14/24 tablet clonidine HCl 0.1 mg tablet 0.1 mg PO BID #60 tabs 09/14/24 Allergies Allergy/AdvReac Type Severity Reaction Status Date / Time morphine Allergy Intermediate RASH Verified 12/28/24 18:06 Review of Systems Review of Systems Systems Reviewed: All systems reviewed, normal except as documented Constitutional Constitutional: Reports system reviewed and no additional complaints, except as documented, Denies fever(s) and Denies headache(s) ENT Ears, Nose, Mouth, and Throat: Denies disequilibrium and Denies headache(s) Cardiovascular Cardiovascular: Reports system reviewed and no additional complaints, except as documented, Denies chest pain and Denies dyspnea Respiratory Respiratory: Reports system reviewed and no additional complaints, except as documented, Denies cough and Denies dyspnea Gastrointestinal Gastrointestinal: Reports system reviewed and no additional complaints, except as documented, Denies abdominal pain, Denies nausea and Denies vomiting Genitourinary Genitourinary: Reports as per HPI, Reports dysuria and Reports flank pain Neurologic Neurologic: Reports system reviewed and no additional complaints, except as documented, Denies confusion, Denies disequilibrium and Denies headache(s) Psychiatric Psychiatric: Denies confusion Past Medical History Past Medical History NEUROLOGIC: Negative Neurological Disorders, Seizures or Migraine CARDIAC: Positive Cardiac Disorders, Hypercholesterolemia and Hypertension; Negative Congestive Heart Failure, Edema or Varicose Veins RESPIRATORY: Positive Chronic Obstructive Pulmonary Disease (COPD) and Bronchitis GASTROINTESTINAL: Positive Gastrointestinal Disorders, Gall Bladder Disease, Hemorrhoids and Obesity; Negative Hepatitis GENITOURINARY: Positive Genitourinary Disorders, Kidney Stones and Benign Prostatic Hyperplasia; Negative Renal Disease MUSCULOSKELETAL: Positive Musculoskeletal Disorders, Arthritis and Carpal Tunnel Syndrome (bilateral) ENT: Positive Cataracts (right) ENDOCRINE: Positive Endocrine Disorders and Hypothyroidism; Negative Diabetes Mellitus Type 1 or Diabetes Mellitus Type 2 HEMATOLOGIC: Negative Blood Disorders PSYCHO/SOCIAL: Positive Depression and Anxiety OTHER HISTORY: Positive Hospitalization (surgeries), Falls, Chicken Pox and Measles; Negative Autoimmune Disease, Shingles, Blood Transfusions, Blood Transfusion Reaction, Anesthesia Reactions, MRSA, Mumps or Cancer Family History FAMILY HISTORY: Positive Family Respiratory Disorders, Family Cardiac Disorders and Family Surgery; Negative Family Psychiatric Problems, Family Gastrointestinal Problems, Family Cancer or Family Anesthesia Reaction Surgical History SURGICAL: Positive Cardiac Surgery, Coronary Stent, Angiogram, Ear Surgery, Abdominal Surgery and Transurethral Resection; Negative Pacemaker Social History SMOKING STATUS: Never smoker ED Exam General Limitations: Present no limitations General appearance: Present alert and in no apparent distress Head Head exam: Present atraumatic Eye Eye exam: Present normal appearance, PERRL and EOMI ENT ENT exam: Present normal exam, normal oropharynx and mucous membranes moist Neck Neck exam: Present normal inspection, full ROM and trachea midline Chest Chest inspection: Present normal inspection and symmetric chest wall rise Respiratory Respiratory exam: Present normal lung sounds bilaterally Cardiovascular Cardiovascular exam: Present regular rate, normal rhythm and normal heart sounds Abdominal Exam Abdominal exam: Present soft and normal bowel sounds Extremities Exam Extremities exam: Present full ROM Expanded Lower Extremity Exam Knee exam: Present full ROM and abrasion (L healing) Back Exam Back exam: Present normal inspection and full ROM Neurological Exam Neurological exam: Present alert, oriented X3 and CN II-XII intact Psychiatric Psychiatric exam: Present normal affect and normal mood Skin Skin exam: Present warm, dry, intact and normal color Course Quality Measures none Orders Category Date Time Status CT cervical spine wo con Stat Exams 12/28/24 18:[address] chest abdomen pelvis wo Stat Exams 12/28/24 18:[address] head/brain wo con Stat Exams 12/28/24 18:47 Completed XR knee LT 3V Stat Exams 12/28/24 19:01 Completed CBC Stat Lab 12/28/24 18:50 Completed CMP [Comprehensive Metabolic Panel] Stat Lab 12/28/24 18:50 Completed Lipase Stat Lab 12/28/24 18:50 Completed Troponin I Stat Lab 12/28/24 18:50 Completed Urinalysis, C/S if Indicated Stat Lab 12/28/24 19:08 Completed fentaNYL INJ [Sublimaze Inj] Med 12/28/24 21:43 Discontinued 100 mcg IM X1 ONE Vital Signs Vital signs: Vital Signs Temperature 98.1 F 12/28/24 18:29 Pulse Rate 68 12/28/24 18:29 Respiratory Rate 20 12/28/24 18:29 Blood Pressure 177/92 H 12/28/24 18:29 Pulse Oximetry (%) 95 12/28/24 18:29 Oxygen Delivery Method Room Air 12/28/24 18:29 O2 at 95% on RA and WNLs Urogenital - Male MDM Narrative MDM Narrative:: 79M with history of TURP procedure, hypothyroidism, HTN, and several back surgeries presents to ED with 2 days of R flank pain and dysuria. Separately, patient fell while going to the bathroom 2 days ago. Fall was unwitnessed, but heard him fall and when she arrived, patient was awake and got up himself. No known injury except patient scraped his L knee. Patient states the back/flank pain is not from the fall because he states this pain is different than his normal back pain. Physical exam reveals normal WOB. Healing skin abrasion on L knee. Patient is afebrile, calm, and alert. CT head/neck/chest/ab/pelvis unremarkable. XR unremarkable. No leukocytosis. Minimal anemia. CMP unremarkable. UA clean with no blood or dehydration. Meds and counseling center manager given. Patient data External records reviewed:: [facility] previous records Clinical information provided by:: patient Social determinants that could affect healthcare access:: none Patient has the following chronic illnesses:: hypothyroidism, HTN, and several back surgeries How is presenting disease/condition affected by chronic disease/condition?: uneffected by Evaluation data The following diagnostics were reviewed and interpreted by me:: lab results and radiology exam(s) Lab and/or radiology exams considered but not ordered:: ordered Interpretation Summary: above Medications / Prescriptions Medications or Prescriptions considered but not ordered:: ordered Medication administrations:: Medication Administration History Discontinued Medications Fentanyl Citrate (Fentanyl Cit Inj 50 Mcg/Ml Amp 2ml) 100 mcg IM X1 ONE Stop: 12/28/24 21:44 Last Admin: 12/28/24 22:14 Dose: 100 mcg Documented By: SOCORRO above Consultations Consultation(s) initiated? (list below): No Diagnosis Urogenital Male Differential Diagnosis: urinary tract infection, priapism, urethritis, epididymitis, genital herpes simplex, prostatitis, acute retention of urine, inguinal hernia and other (kidney stone, fall, skin abrasion, soft tissue contusion, back pain) Most likely diagnosis given after review of the tests above:: back pain Admission Indicated Admission indicated?: not indicated Admission Request Was there a request for admission?: No Disposition Plan Disposition Plan: Discharge Discharge Attestation Discharge Attestation: The patient and all family members were given an opportunity to ask questions and understood the discharge instructions. Discharge instructions specifically effects, indications for sooner follow up or return to the emergency department, and the expected course of current diagnosis. Patient condition: Stable Discharge Plan Plan Patient Disposition: HOME (Self Care) Discharge Disposition comment: Stable Prescriptions/Referrals Prescriptions/Med Rec: No Action hydrocortisone 1 % cream with perineal applicator 1 applic [place] QDAY Qty: 28.4 0RF atorvastatin [Lipitor] 10 MG tablet 10 mg PO DAILY Qty: 0 venlafaxine 75 mg Capsule,Extended Release 24hr 75 mg PO BID Qty: 0 baclofen 10 mg Tablet 10 mg PO BID primidone 250 mg Tablet 250 mg PO BID amlodipine-benazepril 5-10 mg Capsule 1 cap PO BID levothyroxine 125 mcg Tablet 125 mcg PO QDAY hydrocodone-acetaminophen 10-325 mg Tablet 1 tab PO 4XD PRN (Reason: Pain) temazepam 30 mg capsule 30 mg PO DAILY Patient Comments: TAKE 1 CAPSULE BY MOUTH AT NIGHT FOR CHRONIC INSOMNIA aspirin 81 mg Tablet,Chewable 81 mg PO QDAY clonidine HCl 0.1 mg tablet 0.1 mg PO BID Qty: 60 0RF acetaminophen-codeine 300-30 mg tablet 2 tab PO TID MDD 6 PRN (Reason: pain) Qty: 20 0RF ibuprofen 800 mg tablet 800 mg PO TID Patient Comments: TAKE 1 TABLET BY MOUTH TWICE DAILY allopurinol 100 mg tablet 100 mg PO DAILY Patient Comments: TAKE 1 TABLET BY MOUTH ONCE DAILY FOR ELEVATED URIC ACID LEVELS gabapentin 300 mg capsule 300 mg PO TID Patient Comments: TAKE 1 CAPSULE BY MOUTH THREE TIMES DAILY aspirin 81 mg Tablet,Chewable 81 mg PO QDAY cholecalciferol (vitamin D3) [Vitamin D3] 125 mcg (5,000 unit) Tablet 125 mcg PO 2 X WEEKLY Referrals: Earl Tadeo MD [Primary Care Provider] - In 1 week Problem List Clinical Impression: Back pain Patient/Caregiver Discharge Instructions Education Materials: ED Back Pain (Acute or Chronic) Additional Instructions: Please follow-up with PCP within 24-48 hours and return immediately if symptoms worsen. If problem persists, recommend outpatient PT and/or MRI follow-up. In the meantime, rest, use ice/heat, and/or compression. Print Language: Mongolian Stand Alone Forms: Patient Portal Info Letter IGLESIA/DANNY Supervising Physician IGLESIA/DANNY Supervising Physician: Dr. Valadez
--- NOTE | 2024-12-28 19:01 | XR_ITS ---
Examination: Knee, left , 3 views Technique: Knee AP, lateral, oblique 3 views Date and time of exam: December 28, 2024 1919 hours INDICATIONS: Patient fell 5 days ago with injury to the knee, knee pain. FINDINGS: Severe osteopenia No acute fracture No dislocation IMPRESSION: No acute fracture
[2024-12-28 19:15] LABS: Basophils % (Auto) 1 % (0-2.5); Eosinophils # (Auto) 0.1 Thou/mm3 (0.0-0.5); Eosinophils % (Auto) 1 % (0-10); Hemoglobin 12.7 g/dL (13.5-16.0); Immature Granulocytes % (Auto) 0 % (0-0); Immature Granulocytes Auto 0.01 Thou/mm3 (0.00-0.00); Lymphocytes # (Auto) 2.4 Thou/mm3 (1.0-4.8); Lymphocytes % (Auto) 30 % (10-50); Mean Corpuscular HGB Conc 34.3 g/dl (31.0-37.0); Mean Corpuscular Hemoglobin 31.3 pg (25.0-35.0); Mean Corpuscular Volume 91 fL (80-100); Monocytes # (Auto) 0.7 Thou/mm3 (0.0-0.8); Monocytes % (Auto) 9 % (0-12); Neutrophils # (Auto) 4.9 Thou/mm3 (1.8-7.7); Neutrophils % (Auto) 60 % (37-80); Nucleated Red Blood Cell % 0 /100 WBC (0); Platelet Count 192 Thou/mm3 (140-440); RDW Standard Deviation 43.2 fL (35.1-43.9); Red Blood Count 4.06 Miln/mm3 (4.50-5.90); White Blood Count 8.1 Thou/mm3 (3.8-10.6)
[2024-12-28 19:18] LABS: Collection Type, Urine Clean Catch; RBC,Urine 0 /hpf (0-3); Squamous Epithelial Cell,Urine 0 /hpf (0-5); WBC,Urine 0 /hpf (0-5)
[2024-12-28 19:32] LABS: Bilirubin,Urine Negative (Negative); Blood,Urine Negative (Negative); Clarity,Urine Clear (Clear/Hazy); Color,Urine Lt-Yellow (Lt Yel-Yel); Culture Indicated,Urine Not Indicated; Glucose, Urine Negative (Negative); Ketones,Urine Negative (Negative); Leukocyte Esterase,Urine Negative (Negative); Nitrite,Urine Negative (Negative); Protein,Urine Negative (Neg - Trace); Specific Gravity,Urine 1.023 (1.001-1.035); Urobilinogen,Urine Negative mg/dL (0.0-1.0)
[2024-12-28 19:33] LABS: Alanine Aminotransferase 18 U/L (10-49); Albumin, Serum 4.4 gm/dL (3.4-4.8); Albumin/Globulin Ratio 1.8 (1.2-2.2); Alkaline Phosphatase 80 U/L (46-116); Anion Gap 8 (7-16); Aspartate Amino Transferase 18 U/L (0-34); BUN/Creatinine Ratio 20 Ratio (12-20); Bilirubin,Total 0.2 mg/dL (0.3-1.2); Blood Urea Nitrogen 18 mg/dL (9-23); Calcium 9.4 mg/dL (8.3-10.6); Calcium (Corrected) 9.4 mg/dL (8.5-10.1); Chloride 100 mMol/L (98-107); Creatinine (Component) 0.9 mg/dL (0.6-1.3); Estimated Creatinine Clearance 76.6 mL/min (>60); Globulin 2.5 gm/dL (2.3-3.5); Glucose 122 mg/dL (74-106); Lipase 37 U/L (12-53); Osmolality,Calculated 276 (275-295); Potassium 4.4 mMol/L (3.4-5.1); Sodium 137 mMol/L (136-145); Total Protein 6.9 gm/dL (5.7-8.2); Troponin I < 0.020 ng/mL (0.0-0.045); eGFR > 60 See Note
[2024-12-28] MEDS: fentaNYL CIT INJ 50 mCg/ML AMP 2ML 100 MCG IM (22:14)
[2024-12-28 22:21] VITALS: BP 186/84; PULSE 68; RESP 18; TEMP 37.1; O2SAT 94
== END 2024-12-28 22:48 | disposition home or self-care (01) ==
PROVIDERS: Physician Assistant; Emergency Provider Emergency Medicine; PCP Family Medicine
DX: M54.9 Dorsalgia, unspecified (principal); I10 Essential (primary) hypertension; E03.9 Hypothyroidism, unspecified; R10.9 Unspecified abdominal pain; S80.212A Abrasion, left knee, initial encounter; W19.XXXA Unspecified fall, initial encounter; R07.9 Chest pain, unspecified
CPT/HCPCS: 36415; 70450; 71250; 72125; 73562; 74176; 80053; 81001; 83690; 84484; 85025; 96372; 99284; J3010

== ENCOUNTER → 2025-01-16 | Outpatient (CLI) | payer MEDICARE, SELFPAY ==
[2025-01-16 08:47] LABS: Glucose Estimated Average 108 mg/dL (80-131); Hemoglobin A1C 5.4 % Hgb (4.8-6.0)
[2025-01-16 08:57] LABS: Alanine Aminotransferase 19 U/L (10-49); Albumin, Serum 4.2 gm/dL (3.4-4.8); Albumin/Globulin Ratio 1.8 (1.2-2.2); Alkaline Phosphatase 80 U/L (46-116); Anion Gap 7 (7-16); Aspartate Amino Transferase 17 U/L (0-34); BUN/Creatinine Ratio 17 Ratio (12-20); Bilirubin,Total 0.2 mg/dL (0.3-1.2); Blood Urea Nitrogen 15 mg/dL (9-23); Calcium 8.6 mg/dL (8.3-10.6); Calcium (Corrected) 8.6 mg/dL (8.5-10.1); Carbon Dioxide 31.9 mMol/L (20.0-31.0); Cardiac Risk Estimate 3.4 RATIO (4.0-6.7); Chloride 102 mMol/L (98-107); Cholesterol 103 mg/dL (132-200); Creatinine (Component) 0.9 mg/dL (0.6-1.3); Globulin 2.4 gm/dL (2.3-3.5); Glucose 104 mg/dL (74-106); HDL Cholesterol 30 mg/dL (40-60); LDL Cholesterol,Calculated 52 mg/dL (0-130); Osmolality,Calculated 282 (275-295); Potassium 4.6 mMol/L (3.4-5.1); Sodium 141 mMol/L (136-145); Total Protein 6.6 gm/dL (5.7-8.2); Triglycerides 106 mg/dL (30-150); eGFR > 60 See Note
== END | disposition home or self-care (01) ==
LOC: COPL 06:38
PROVIDERS: PCP Family Medicine; Referring Provider Family Medicine; Visit Provider Family Medicine
DX: E11.40 Type 2 diabetes mellitus with diabetic neuropathy, unspecified (principal); E78.2 Mixed hyperlipidemia; I10 Essential (primary) hypertension
CPT/HCPCS: 36415; 80053; 80061; 83036

== ENCOUNTER → 2025-06-16 | Outpatient (CLI) | payer MEDICARE, SELFPAY ==
[2025-06-16 08:36] LABS: Glucose Estimated Average 108 mg/dL (80-131); Hemoglobin A1C 5.4 % Hgb (4.8-6.0)
[2025-06-16 08:56] LABS: Alanine Aminotransferase 15 U/L (10-49); Albumin, Serum 4.7 gm/dL (3.4-4.8); Albumin/Globulin Ratio 2.4 (1.2-2.2); Alkaline Phosphatase 73 U/L (46-116); Anion Gap 10 (7-16); Aspartate Amino Transferase 17 U/L (0-34); BUN/Creatinine Ratio 25 Ratio (12-20); Bilirubin,Total 0.2 mg/dL (0.3-1.2); Blood Urea Nitrogen 25 mg/dL (9-23); Calcium 9.1 mg/dL (8.3-10.6); Calcium (Corrected) 9.1 mg/dL (8.5-10.1); Carbon Dioxide 29.7 mMol/L (20.0-31.0); Cardiac Risk Estimate 3.4 RATIO (4.0-6.7); Chloride 105 mMol/L (98-107); Cholesterol 89 mg/dL (132-200); Creatinine (Component) 1.0 mg/dL (0.6-1.3); Globulin 2.0 gm/dL (2.3-3.5); Glucose 99 mg/dL (74-106); HDL Cholesterol 26 mg/dL (40-60); LDL Cholesterol,Calculated 40 mg/dL (0-130); Magnesium 2.0 mg/dL (1.6-2.6); Osmolality,Calculated 293 (275-295); Potassium 4.8 mMol/L (3.4-5.1); Sodium 145 mMol/L (136-145); Thyroid Stimulating Hormone 2.35 uIU/mL (0.55-4.78); Total Protein 6.7 gm/dL (5.7-8.2); Triglycerides 116 mg/dL (30-150); eGFR > 60 See Note
== END | disposition home or self-care (01) ==
PROVIDERS: PCP Family Medicine; Referring Provider Family Medicine; Visit Provider Family Medicine
DX: E11.59 Type 2 diabetes mellitus with other circulatory complications (principal); I25.10 Atherosclerotic heart disease of native coronary artery without angina pectoris; E78.2 Mixed hyperlipidemia; I10 Essential (primary) hypertension; E03.9 Hypothyroidism, unspecified
CPT/HCPCS: 36415; 80053; 80061; 83036; 83735; 84443

== ENCOUNTER 2025-07-24 10:09 | Outpatient (AMB) | payer MEDICARE, SELFPAY ==
--- NOTE | 2025-07-24 10:53 | GSCOFFNT_ITS ---
Vital Signs - [facility] 07/24/25 10:54 Height 1.75 m Height Method Measured Weight 98.203 kg Weight Measurement Method Standing Scale BMI 32.1 BP 109/66 Blood Pressure Source Automatic Cuff Blood Pressure Location Left Upper Arm Position Sitting Respiration 18 Pulse 55 L Pulse Source Monitor Temp 96.9 F Temp Source Temporal Artery Scan Pulse Oximetry (%) 95 Oxygen Delivery Method Room Air Med/Allergies Allergies & Medications Allergies morphine Allergy (Intermediate, Verified 12/28/24 18:06) RASH MA Intake Visit Data Collection New Patient or Established: Established Patient (seen at [facility] within 3 years) Reason for Visit:: ANAL FISTULA F/U Pain Present Currently: No Pain Scale Used: Coffey-Russell/Numerical [employer] Service Attendant Required: No PCP or OBGYN visit in last 3 months: Yes Hx Now: No Do You Feel Safe at Home: Yes Authorities Contacted: N/A Smoking Status Smoking Status: Never smoker Immunization / Flu Flu Vaccine in the Last 12 Months: No Flu Vaccine Exclusion Criteria: Refused by Patient Past Medical History Past Medical History NEUROLOGIC: Negative Neurological Disorders, Seizures or Migraine CARDIAC: Positive Cardiac Disorders, Hypercholesterolemia and Hypertension; Negative Congestive Heart Failure, Edema or Varicose Veins RESPIRATORY: Positive Chronic Obstructive Pulmonary Disease (COPD) and Bronchitis GASTROINTESTINAL: Positive Gastrointestinal Disorders, Gall Bladder Disease, Hemorrhoids and Obesity; Negative Hepatitis GENITOURINARY: Positive Genitourinary Disorders, Kidney Stones and Benign Prostatic Hyperplasia; Negative Renal Disease MUSCULOSKELETAL: Positive Arthritis and Carpal Tunnel Syndrome (bilateral) ENT: Positive Cataracts (right) ENDOCRINE: Positive Endocrine Disorders and Hypothyroidism; Negative Diabetes Mellitus Type 1 or Diabetes Mellitus Type 2 HEMATOLOGIC: Negative Blood Disorders PSYCHO/SOCIAL: Positive Depression and Anxiety OTHER HISTORY: Positive Hospitalization (surgeries), Falls, Chicken Pox and Measles; Negative Autoimmune Disease, Shingles, Blood Transfusions, Blood Transfusion Reaction, Anesthesia Reactions, MRSA, Mumps or Cancer Family History FAMILY HISTORY: Positive Family Respiratory Disorders, Family Cardiac Disorders and Family Surgery; Negative Family Psychiatric Problems, Family Gastrointestinal Problems, Family Cancer or Family Anesthesia Reaction Surgical History SURGICAL: Positive Cardiac Surgery, Coronary Stent, Angiogram, Ear Surgery, Abdominal Surgery and Transurethral Resection; Negative Pacemaker Social History SMOKING STATUS: Smoking status: Never smoker ALCOHOL: Alcohol Intake: Former HOUSING: Housing: House HPI HPI Narrative 79M with history of perianal ulcer s/p biopsy x2 negative for malignancy, following up a year after last visit. Pt states he has been straining to have a BM and lately feels that he has difficulty evacuating, as if stool is getting caught at the anal verge. Pt reports drinking at least 2L of water daily, he does not take fiber but takes a liquid medication (unsure of the name) prescribed by his PCP for constipation. He states that he takes this medication every day, as he tends not to have a BM without it but even with it has to spend ten minutes or more on the toilet. He has occasional blood with wiping, but no itching and no external lesions. Pt is not using any remedies from hemorrhoids at the moment ROS Review of Systems Systems Reviewed: All systems reviewed, normal except as documented Objective/Exam General General Appearance: alert, cooperative and well groomed Resp Respiratory exam: Absent respiratory distress Rectal Rectal exam: Present hemorrhoids (no external hemorrhoids but internal hemorrhoids are seen on anoscopy) and other (anterior midline ulceration healed compared to prior exams) Assessment & Plan Diagnosis / Problem List (1) Hemorrhoids, internal: Status: Acute Assessment & Plan: 79M with history of perianal ulcer s/p biopsy x2 negative for malignancy, presenting with signs and symptoms of internal hemorrhoids. I explained that minimizing straining is hdz and recommended pt initiate fiber in powder form. I will prescribe anusol suppositories and follow up in 6 weeks Advanced Care Planning Advance care planning discussed with:: other Office Procedures GNS Level of Care Nursing/Assessment Patient Status: Established Patient Nursing Assessment/Reassesment: Medication Reconciliation, Update PMH in EMR and Vital Signs Coordination of Care: Complex Care and Chronic Disease 1-5, Education Complex Pt/Fam, Consent,records obtained, informed consent, Results/Orders obtained and Staff clarify orders Established Patient Charge Established Patient Point Assignment: 95 Established Patient Point Charge: EP Level 3 (80-115) Patient Portal Questionaires Social History Living Situation History Housing: House Tobacco History Smoking Status: Never smoker Alcohol History Alcohol Intake: Former Domestic Abuse History Do You Feel Safe at Home: Yes Review of Systems Report any current symptoms Only answer those that you have currently: Past Medical History Past Medical History Have you ever been diagnosed with any of the following: Neurological Problems Seizures: No Migraine: No Cardiology Problems Hypercholesterolemia: Yes Congestive Heart Failure: No Edema: No Hypertension: Yes Varicose Veins: No Respiratory Problems Chronic Obstructive Pulmonary Disease (COPD): Yes Bronchitis: Yes Stomache/Intestinal Problems Hepatitis: No Gall Bladder Disease: Yes Hemorrhoids: Yes Obesity: Yes Genital/Urinary Problems Renal Disease: No Kidney Stones: Yes Benign Prostatic Hyperplasia: Yes Musculoskeletal Problems Arthritis: Yes Carpal Tunnel Syndrome: Yes (bilateral) Head,Eye,Nose,Throat Problems Cataracts: Yes (right) Endocrine Problems Diabetes Mellitus Type 1: No Diabetes Mellitus Type 2: No Hypothyroidism: Yes Psychologic Problems Depression: Yes Anxiety: Yes Other Problems Hospitalization: Yes (surgeries) Autoimmune Disease: No Shingles: No Falls: Yes Blood Transfusions: No Blood Transfusion Reaction: No Anesthesia Reactions: No MRSA: No Chicken Pox: Yes Measles: Yes Mumps: No Cancer: No Surgical History Pacemaker: No
[2025-07-24 10:54] VITALS: BP 109/66; PULSE 55; RESP 18; TEMP 36.1; O2SAT 95; BMI 32.1
== END 2025-07-24 11:40 | disposition home or self-care (01) ==
LOC: HODSRG 10:09
PROVIDERS: PCP Family Medicine; Referring Provider Family Medicine; Supervising Provider Surgery; Visit Provider Surgery
DX: K64.8 Other hemorrhoids (principal)
CPT/HCPCS: 99213; G0463